=== PATIENT | female | born 1945 | race Caucasian/White ===

== ENCOUNTER 2023-10-06 21:28 | Emergency (ER) | payer MEDICARE, OTHER, SELFPAY ==
[2023-10-06 21:31] VITALS: BP 166/88
[2023-10-06 21:33] VITALS: BP 166/88
[2023-10-06 22:00] VITALS: BP 168/93
[2023-10-06 22:18] LABS: % Basophils 0.5 % (0-2); % Eosinophils 1.5 % (0-6); % Immature Granulocytes 0.4 % (0-0.5); % Lymphocytes 37.7 % (20.5-51.1); % Monocytes 8.7 % (1.7-9.3); % Neutrophils 51.2 % (42.2-75.2); Absolute Eosinophils 0.1 10^3/uL (0-0.7); Absolute Lymphocytes 2.8 10^3/uL (1.2-3.4); Absolute Monocytes 0.7 10^3/uL (0.1-0.6); Absolute Neutrophils 3.9 10^3/uL (1.4-6.5); Hematocrit 36.2 % (37.0-47.0); Hemoglobin 12.6 g/dL (12.0-16.0); Mean Corp Hgb Conc. 34.8 g/dL (33.0-37.0); Mean Corpuscular Hgb 31.9 pg (27.0-31.0); Mean Corpuscular Volume 91.6 fL (81.0-99.0); Nucleated Red Blood Cells % 0 %; Platelet Count 165 10^3/uL (130-400); Red Blood Cell Count 3.95 10^6/uL (4.20-5.40); Red Cell Dist. Width 16.2 % (11.5-14.5); White Blood Cell Count 7.5 10^3/uL (4.8-10.8)
--- NOTE | 2023-10-06 22:30 | ED.CVA ---
History of Present Illness
<BAKARI Patiño - Last Filed: 10/07/23 00:17>
General
Chief Complaint: CVA/TIA Symptoms
Source: patient
Exam Limitations: none
Time Seen by Provider: 10/06/23 22:16
Onset of Stroke Symptoms
Onset of symptoms known: No
Time pt last seen normal is known: No
Travel History
Have you had any contact with someone who has COVID-19?: No
Do you have any symptoms of coronavirus? Fever > 100 degrees, chills, cough, shortness of breath, sore throat, loss of taste or smell, muscle aches, or headache?: No
History of Present Illness
History of Present Illness:
This is a 78 year old female that comes in with multiple complaints. States that she has had a headache since after her Epidural on Sep 20. Sates that she also has Trigeminal neuralgia. States that she felt this fluttering in her ear and that she
felt that the Q-tip came out wet. States that this has not happened since. Then today she felt like her ear was wet again and her left leg buckled out from under her which has never happened before. States that she did not fall. States that she has
continued with this headache and she felt that her head in side was spinning. Denies any fever, chills, chest pain, SOB, abd pain, nausea, vomiting, diarrhea, urinary burning.
Past History
<BAKARI Patiño - Last Filed: 10/07/23 00:17>
Past History
ED Past Medical History: Cancer (Breast cancer 1997 ), CVA (TIA), Fibromyalgia, GERD, HTN, Hypercholesterolemia, Hypothyroidism, Psychiatric (Depression ) and Other (Cervical disc disease, neuropathy, headaches Spinal stenosis, Sleep apnea, Gout)
ED Past Surgical History: Gynecological (Hysterectomy ), Orthopedic (Cervical fusion X 2, carpal tunnel release , lumbar laminectomy and fusion), Tonsilectomy (and adnoids) and Other (Bilateral mastectomies 1981 with bilateral breast reconstruction
2003 and then removal of implants, cataracts, Abd adhesion removed)
Social History
Tobacco: Non-smoker
Alcohol: None
Drug: None
Personal:
Living: with family
Employment: Employed
Family History
Family History: Other
Review of Systems
<BAKARI Patiño - Last Filed: 10/07/23 00:17>
Review of Systems
All Other Systems: ROS reviewed and negative except as documented in HPI and ROS
Constitutional: Reports no symptoms; Denies fever or chills
EENT: Reports other (Feels like there is wet in the right ear)
Respiratory: Reports no symptoms; Denies cough or trouble breathing
Cardiac: Reports no symptoms; Denies chest pain
ABD/GI: Reports no symptoms; Denies abdominal pain, nausea, vomiting or diarrhea
: Reports no symptoms; Denies dysuria, frequency or urgency
Musculoskeletal: Reports no symptoms
Skin: Reports no symptoms
Neurological: Reports headache (Feels like her head is spinning inside); Denies dizzy
Psychiatric: Reports no symptoms
Phy Exam
<BAKARI Patiño - Last Filed: 10/07/23 00:17>
General Physical Exam
General Presentation: no apparent distress
General age: appears stated age
General Skin: warm and dry
General Habitus: elderly
General Mental: alert
General Hydration: dry mucous membranes
ENT Exam
ENT Exam: TM's normal (Negative for any fluid noted) and pharynx normal
Eye Exam
Eye Exam: EOMI
Cardiovascular Exam
Cardiovascular Exam: regular rate/rhythm, no edema and normal peripheral pulses
Pulmonary Exam
Pulmonary Exam: lungs clear, no respiratory distress, no rales, chest non tender, no crackles, no rhonchi, no wheezing and no cough
Gastrointestinal Exam
Gastrointestinal Exam: normal bowel sounds, non tender, soft, no organomegaly, no pulsatile mass and non distended
Musculoskeletal Exam
Musculoskeletal Exam: full ROM and no edema
Skin Exam
Skin Exam: normal color, warm/dry, no rash and no petechia
Psychiatric Exam
Psychiatric Exam: normal mood/affect
Course
<BAKARI Patiño - Last Filed: 10/07/23 00:17>
Orders/Labs/Results
Orders:
Orders
10/06/23 22:05
Complete Blood Count/With Diff Urgent
10/06/23 22:29
CT Head W/o Iv Contrast Urgent
Comment:
Reason For Exam: Headache, feels head spinning inside
0.9% Sodium Chloride 1000 ml [Nss] 1,000 ml IV BOLUS
Ketorolac [Toradol] 30 mg IV NOW STA
10/06/23 22:38
Comprehensive Metabolic Panel Urgent
Abnormal Lab Results
10/06/23 10/06/23
22:05 22:38
RBC 3.95 L 10^6/uL
(4.20-5.40)
Hct 36.2 L %
(37.0-47.0)
MCH 31.9 H pg
(27.0-31.0)
RDW 16.2 H %
(11.5-14.5)
MPV 12.0 H fL
(7.4-10.4)
Absolute Monos (auto) 0.7 H 10^3/uL
(0.1-0.6)
BUN 21 H mg/dl
(7-17)
Glucose 116 H mg/dl
(70-99)
10/06/23 22:05
10/06/23 22:38
Dehydration. Glucose nonfasting.
Vital Signs
Initial and Last Documented VS:
Initial Vital Signs
Temp Pulse Resp BP Pulse Ox
98.6 F 71 22 166/88 98
10/06/23 21:31 10/06/23 21:31 10/06/23 21:31 10/06/23 21:31 10/06/23 21:31
Last Documented Vital Signs
Temp Pulse Resp BP Pulse Ox
98.6 F 75 9 161/82 95
10/06/23 21:31 10/06/23 23:45 10/06/23 23:45 10/06/23 23:01 10/06/23 23:45
<Zachariah Bee, DO - Last Filed: 10/06/23 23:28>
Orders/Labs/Results
Orders:
Orders
10/06/23 22:05
Complete Blood Count/With Diff Urgent
10/06/23 22:29
CT Head W/o Iv Contrast Urgent
Comment:
Reason For Exam: Headache, feels head spinning inside
0.9% Sodium Chloride 1000 ml [Nss] 1,000 ml IV BOLUS
Ketorolac [Toradol] 30 mg IV NOW STA
10/06/23 22:38
Comprehensive Metabolic Panel Urgent
Abnormal Lab Results
10/06/23 10/06/23
22:05 22:38
RBC 3.95 L 10^6/uL
(4.20-5.40)
Hct 36.2 L %
(37.0-47.0)
MCH 31.9 H pg
(27.0-31.0)
RDW 16.2 H %
(11.5-14.5)
MPV 12.0 H fL
(7.4-10.4)
Absolute Monos (auto) 0.7 H 10^3/uL
(0.1-0.6)
BUN 21 H mg/dl
(7-17)
Glucose 116 H mg/dl
(70-99)
10/06/23 22:05
10/06/23 22:38
Vital Signs
Initial and Last Documented VS:
Initial Vital Signs
Temp Pulse Resp BP Pulse Ox
98.6 F 71 22 166/88 98
10/06/23 21:31 10/06/23 21:31 10/06/23 21:31 10/06/23 21:31 10/06/23 21:31
Last Documented Vital Signs
Temp Pulse Resp BP Pulse Ox
98.6 F 75 9 161/82 95
10/06/23 21:31 10/06/23 23:45 10/06/23 23:45 10/06/23 23:01 10/06/23 23:45
<BAKARI Patiño - Last Filed: 10/07/23 00:17>
MDM/Problems Addressed
Differential Diagnosis Includes:
Anxiety, Fibromyalgia, Chronic headaches
MDM/Problems Addressed:
This is a 78 year old female that comes in with with Multiple complaints. States that she has an epidural on Sep 20. Stae that after this she has had a headache and that she felt that the Q-tip came out wet. Then it stopped. Then today she felt
that there was fluttering in her ear and it felt wet. States that her left leg also buckled out from under her but she did not fall.
Will get labs, CT head, IV fluids and medicate for pain.
Back into see patient. Patient states that her headache is better. Explained that her CT of the head is normal and her blood work shows some dehydration. Patient to increase her water intake to 8-8oz glasses daily. Follow up with the family doctor
for recheck. Patient to return with any concerns
Chronic conditions affecting care:
fibromyalgia, Chronic headaches.
Chronic conditions affecting care: Psychiatric illness
Acute Exacerbation and/or Progression of Chronic Illness:
Fibromyalgia, Chronic headaches
Acute Exacerbation and/or Progression of Chronic Illness: Psychiatric illness
<BAKARI Patiño - Last Filed: 10/07/23 00:17>
*Radiology
Radiology exam reviewed: radiology read reviewed (CT head- No acute intracranial abnormality noted. )
*Pulse Oximetry
Patient hypoxic: no
*EKG
Interpreted by ED Provider?: NA
Rate: EKG- N/A
*Critical Care Note
Total Time (30-74mins, 75-104mins- exclusive of procedures): Not Applicable
ED Attending Note
<BAKARI Patiño - Last Filed: 10/07/23 00:17>
-
Portions of this chart may have been created with voice recognition software.� Occasional wrong word or��sound alike� substitutions may have occurred due to the inherent limitations of voice recognition software.
<Zachariah Bee DO - Last Filed: 10/06/23 23:28>
ED Attending Note
Patient seen and examined by attending physician: Yes
I performed the substantive portion of visit, reviewed & personally made and approve the management plan that is documented in note by myself or LUIS ENRIQUE.: Yes
ED Attending Note:
Seen with TRAFFIC ADMINISTRATOR examined independently. Assessment and plan nonfocal neurologic exam history of fibromyalgia multiple orthopedic procedures to the back, presents with fluttering in her ear,
On exam she is pleasant and oriented moves all extremities has chronic left lower extremity weakness,
Discharge Plan
Departure
Patient Disposition: Home (Routine Discharge)
Date of Disposition: 10/07/23
Time of Disposition: 00:13
Patient with high blood pressure during this ER visit?: Yes
Condition: Good
Covid-19: Not Applicable
Discharge Problem:
Headache
Instructions: Headache, Adult (DC), BLOOD PRESSURE
Prescriptions:
No Action
valacyclovir [Valtrex] 500 MG tablet
500 mg PO BID
montelukast 10 MG tablet
10 mg PO HS
acetaminophen 325 MG tablet
650 mg PO Q4HPRN PRN (Reason: mild pain/headache)
sennosides-docusate sodium 1 TABLET tablet
2 udtab PO HS
gabapentin 400 MG capsule
800 mg PO BID
atenolol 25 MG tablet
25 mg PO BID
topiramate 25 MG tablet
50 mg PO BID
meloxicam 7.5 MG tablet
15 mg PO DAILY
potassium chloride [Klor-Con M20] 20 MEQ tablet,ER particles/crystals
20 meq PO BID
levothyroxine 50 MCG tablet
50 mcg PO DAILY
pantoprazole 40 MG tablet,delayed release (DR/EC)
40 mg PO DAILY
diphenhydramine HCl [Banophen] 25 MG capsule
25 mg PO HS
oxybutynin chloride 5 MG tablet extended release 24hr
5 mg PO DAILY
fluticasone propionate 1 SPRAY spray,suspension
1 spray intranasal HS
escitalopram oxalate 20 MG tablet
20 mg PO HS
carboxymethylcellulose sodium [TheraTears] 1 EACH dropperette
2 drp BOTH EYES TID
aripiprazole 2 MG tablet
2 mg PO HS
cholecalciferol (vitamin D3) 1,000 UNITS tablet
1,000 units PO DAILY
Calcium Glycerophosphate
130 mg PO BID
atorvastatin 40 MG tablet
40 mg PO QPM 30 Days Qty: 30 0RF
aspirin 81 MG tablet,delayed release (DR/EC)
81 mg PO DAILY 0RF
famotidine 20 MG tablet
20 mg PO BID Qty: 20 0RF
Referrals:
Oneil Eisenberg MD [Family Provider] - Call in 1-3 days for appt
Activity Restrictions/Additional Instructions:
As discussed, your blood work shows that you are dehydrated. Please increase your water intake to 8-8oz glasses daily. Your CT of the head is normal. Please follow up with your family doctor and your Pain management doctor for further evaluation.
You may take Tylenol 1000mg every 6 hours for pain. If you are not taking the Meloxicam you may also use Ibuprofen 600mg every 6 hours with food for pain. IF YOU HAVE ANY OTHER CONCERNS PLEASE RETURN TO THE EMERGENCY ROOM.
Interventions
Interventions:
*Risk Screen - Suicide Last Done: 10/06/23 21:34
*General Assessment Last Done: 10/06/23 21:34
*Neglect/Abuse Screening Last Done: 10/06/23 21:34
*ED COVID-19 Vaccine History Last Done: 10/06/23 21:34
ED- Pulmonary Assessment Last Done: 10/06/23 22:06
ED- Neurological Assessment Last Done: 10/06/23 22:06
ED- Cardiac Assessment Last Done: 10/06/23 22:06
[2023-10-06] MEDS: TORADOL 30 MG IV (22:34)
[2023-10-06] MEDS: NSS 1000 IV (22:36)
[2023-10-06 22:59] LABS: ALT (SGPT) 26 U/L (0-35); AST (SGOT) 30 U/L (14-36); Albumin 4.2 g/dl (3.5-5.0); Alkaline Phosphatase 120 U/L (38-126); Blood Urea Nitrogen 21 mg/dl (7-17); Calcium 9.3 mg/dl (8.4-10.2); Carbon Dioxide 22 mmol/L (22-30); Chloride 107 mmol/L (98-107); Glucose 116 mg/dl (70-99); Potassium 3.8 mmol/L (3.5-5.1); Sodium 136 mmol/L (135-145); Total Bilirubin 0.4 mg/dl (0.2-1.3); Total Protein 6.9 g/dl (6.3-8.2); eGFR 57.66
[2023-10-06 23:01] VITALS: BP 161/82
[2023-10-07] VITALS: BP 130/62
== END 2023-10-07 00:40 | disposition home or self-care (01) ==
LOC: EMR 21:28
PROVIDERS: EMERGENCY PHYSICIAN Emergency Medicine; FAMILY PHYSICIAN Family Medicine
DX: R51.9 Headache, unspecified (principal); R42 Dizziness and giddiness; M79.7 Fibromyalgia; G50.0 Trigeminal neuralgia; E86.0 Dehydration; I10 Essential (primary) hypertension
CPT/HCPCS: 99284; 96374; 96361; 70450; 80053; 85025

== ENCOUNTER 2024-06-04 17:07 | Emergency (ER) | payer MEDICARE, OTHER, SELFPAY ==
[2024-06-04 17:28] VITALS: BP 122/85
[2024-06-04 17:47] LABS: % Basophils 0.4 % (0-2); % Eosinophils 1.2 % (0-6); % Immature Granulocytes 0.4 % (0-0.5); % Monocytes 8.6 % (1.7-9.3); % Neutrophils 55.4 % (42.2-75.2); Absolute Eosinophils 0.1 10^3/uL (0-0.7); Absolute Lymphocytes 2.5 10^3/uL (1.2-3.4); Absolute Monocytes 0.6 10^3/uL (0.1-0.6); Absolute Neutrophils 4.1 10^3/uL (1.4-6.5); Hematocrit 37.3 % (37.0-47.0); Hemoglobin 12.7 g/dL (12.0-16.0); Mean Corpuscular Hgb 31.1 pg (27.0-31.0); Mean Corpuscular Volume 91.2 fL (81.0-99.0); Mean Platelet Volume 12.3 fL (7.4-10.4); Nucleated Red Blood Cells % 0 %; Platelet Count 180 10^3/uL (130-400); Red Blood Cell Count 4.09 10^6/uL (4.20-5.40); Red Cell Dist. Width 16.2 % (11.5-14.5); White Blood Cell Count 7.3 10^3/uL (4.8-10.8)
[2024-06-04 18:24] LABS: ALT (SGPT) 27 U/L (0-35); AST (SGOT) 35 U/L (14-36); Albumin 4.7 g/dl (3.5-5.0); Alkaline Phosphatase 88 U/L (38-126); Blood Urea Nitrogen 19 mg/dl (7-17); Carbon Dioxide 25 mmol/L (22-30); Chloride 104 mmol/L (98-107); Glucose 117 mg/dl (70-99); Lipase 161 U/L (23-300); Potassium 4.1 mmol/L (3.5-5.1); Sodium 141 mmol/L (135-145); Total Bilirubin 0.3 mg/dl (0.2-1.3); Total Protein 7.4 g/dl (6.3-8.2); eGFR 57.66
[2024-06-04 18:41] VITALS: BP 90/63
[2024-06-04 19:00] LABS: Urine Albumin Negative (Neg - Trace); Urine Bilirubin Negative (Negative); Urine Character Clear (Clear); Urine Color Straw; Urine Glucose Negative (Negative); Urine Ketone Negative (Negative); Urine Leukocyte Trace (Negative); Urine Nitrite Negative (Negative); Urine Occult Blood Negative (Negative); Urine Specific Gravity 1.015 (<1.030); Urine Urobilinogen Negative (Neg - 1+)
--- NOTE | 2024-06-04 19:18 | ED.GENMED ---
History of Present Illness
General
Chief Complaint: Abdominal Pain
Source: patient
Exam Limitations: none
Time Seen by Provider: 06/04/24 18:47
History of Present Illness
History of Present Illness:
This is a 78 year old female that comes in with c/o abd pain. States that she is very nauseated and that she has pain in the right abd that goes around to the back and goes up and down. States that this started yesterday. States that today she went
to see the PCP and was told to come to the ER. States that the pain is constant and that she did take Tylenol 500mg at 3pm. States that she usually has a headache. Denies any fever, chills, chest pain, SOB, vomiting, diarrhea, dizziness, urinary
burning.
Past History
Past History
ED Past Medical History: Cancer (Breast cancer 1997 ), CVA (TIA), Fibromyalgia, GERD, HTN, Hypercholesterolemia, Hypothyroidism, Psychiatric (Depression ) and Other (Cervical disc disease, neuropathy, headaches Spinal stenosis, Sleep apnea, Gout,
Right arm lymph edema, Rebel Linus Syndrome)
ED Past Surgical History: Gynecological (Hysterectomy ), Orthopedic (Cervical fusion X 2, carpal tunnel release , lumbar laminectomy and fusion, Bilateral carpal tunnel), Tonsilectomy (and adenoids) and Other (Bilateral mastectomies 1980 with
bilateral breast reconstruction 2003 and then removal of implants, cataracts, Abd adhesion removed)
Social History
Tobacco: Non-smoker
Alcohol: None
Drug: None
Personal:
Living: with family
Employment: Employed
Family History
Family History: Other
Review of Systems
Review of Systems
All Other Systems: ROS reviewed and negative except as documented in HPI and ROS
Constitutional: Reports no symptoms; Denies fever or chills
EENT: Reports no symptoms
Respiratory: Reports no symptoms; Denies cough or trouble breathing
Cardiac: Reports no symptoms; Denies chest pain
ABD/GI: Reports abdominal pain and nausea; Denies vomiting or diarrhea
: Reports no symptoms; Denies dysuria, frequency or urgency
Musculoskeletal: Reports no symptoms
Skin: Reports no symptoms
Neurological: Reports headache (always); Denies dizzy
Psychiatric: Reports no symptoms
Phy Exam
General Physical Exam
General Presentation: no apparent distress
General age: appears stated age
General Skin: warm and dry
General Habitus: elderly
General Mental: alert
General Hydration: dry mucous membranes
ENT Exam
ENT Exam: TM's normal, pharynx normal and neck supple
Eye Exam
Eye Exam: EOMI
Cardiovascular Exam
Cardiovascular Exam: regular rate/rhythm, no edema and normal peripheral pulses
Pulmonary Exam
Pulmonary Exam: lungs clear, no respiratory distress, no rales, chest non tender, no crackles, no rhonchi, no wheezing and no cough
Gastrointestinal Exam
Gastrointestinal Exam: normal bowel sounds, soft, no organomegaly, no pulsatile mass, non distended and tender (Generalized tenderness with palpation)
Musculoskeletal Exam
Musculoskeletal Exam: full ROM and no edema
Skin Exam
Skin Exam: normal color, warm/dry, no rash and no petechia
Psychiatric Exam
Psychiatric Exam: normal mood/affect
Course
Orders/Labs/Results
Orders:
Orders
06/04/24 17:36
Complete Blood Count/With Diff Urgent
Comprehensive Metabolic Panel Urgent
Lipase Urgent
06/04/24 18:45
Urinalysis Reflex To Culture Urgent
Date Specimen was Collected: 06/04/24
Time Specimen was Collected: 18:40
Urine Microscopic Reflex Cult Urgent
06/04/24 19:17
0.9% Sodium Chloride 1000 ml [Nss] 1,000 ml IV BOLUS
06/04/24 19:18
CT Abd/pelvis W Iv Cont Urgent
Comment:
Reason For Exam: Generalized abd pain
Ondansetron Injectable [Zofran] 4 mg IV NOW STA
06/04/24 19:19
Electrocardiogram (*1) Urgent
Reason for Study: QTc Monitoring
EKG- Treatment ONCE
Abnormal Lab Results
06/04/24 06/04/24
17:36 18:45
RBC 4.09 L 10^6/uL
(4.20-5.40)
MCH 31.1 H pg
(27.0-31.0)
RDW 16.2 H %
(11.5-14.5)
MPV 12.3 H fL
(7.4-10.4)
BUN 19 H mg/dl
(7-17)
Glucose 117 H mg/dl
(70-99)
Leukocyte Esterase Rfl Trace A
(Negative)
06/04/24 17:36
06/04/24 17:36
Very slight Dehydration. Hyperglycemia. Lipase normal at 161, Urine negative for infection
Vital Signs
Initial and Last Documented VS:
Initial Vital Signs
Temp Pulse Resp BP Pulse Ox
98 F 75 18 122/85 98
06/04/24 17:28 06/04/24 17:28 06/04/24 17:28 06/04/24 17:28 06/04/24 17:28
Last Documented Vital Signs
Temp Pulse Resp BP Pulse Ox
98 F 74 18 90/63 97
06/04/24 17:28 06/04/24 18:41 06/04/24 18:41 06/04/24 18:41 06/04/24 18:41
MDM/Problems Addressed
Differential Diagnosis Includes:
Colitis, Enteritis, Renal calculus, Appendicitis
MDM/Problems Addressed:
This is a 78 year old female that comes in with c/o right sided abd pain that goes around to the back and goes up and down the back on the right side. States that she is nauseated and that this pain started yesterday.
Will check labs, Urine and get CT scan. Will also give IV fluids.
Back into see patient. Explained that her blood work shows very slight Dehydration otherwise normal. Her CT is negative for any acute disease. Will give patient a prescription for Zofran and have her Follow up with the family doctor. Patient states
that it might just be her Fibromyalgia. Patient to return with any concerns.
Chronic conditions affecting care:
NA
Acute Exacerbation and/or Progression of Chronic Illness:
NA
*Radiology
Radiology exam reviewed: radiology read reviewed (CT- No significant abnormality identified in the abdomen or pelvis, as described above. )
*Pulse Oximetry
Patient hypoxic: no
*EKG
Interpreted by ED Provider?: Yes
Heart Rate: 73
Rate: normal
Rhythm: sinus
[place]: left axis deviation
Interval: normal interval
QRS Pattern: normal QRS
Ischemia: no ischemia
*Efficiency Clerk Interpretation
Rate: Efficiency Clerk- N/A
*Critical Care Note
Total Time (30-74mins, 75-104mins- exclusive of procedures): Not Applicable
ED Attending Note
-
Portions of this chart may have been created with voice recognition software.� Occasional wrong word or��sound alike� substitutions may have occurred due to the inherent limitations of voice recognition software.
Discharge Plan
Departure
Patient Disposition: Home (Routine Discharge)
Date of Disposition: 06/04/24
Time of Disposition: 21:09
Patient with high blood pressure during this ER visit?: No
Condition: Good
Covid-19: Not Applicable
Discharge Problem:
Nausea, Abdominal pain
Instructions: Nausea and Vomiting, Adult (DC), Abdominal Pain
Prescriptions:
New
ondansetron HCl 4 mg tablet
4 mg PO Q8H PRN (Reason: nausea and vomiting) Qty: 7 0RF
No Action
valacyclovir [Valtrex] 500 MG tablet
500 mg PO BID
montelukast 10 MG tablet
10 mg PO HS
acetaminophen 325 MG tablet
650 mg PO Q4HPRN PRN (Reason: mild pain/headache)
sennosides-docusate sodium 1 TABLET tablet
2 udtab PO HS
gabapentin 400 MG capsule
800 mg PO BID
atenolol 25 MG tablet
25 mg PO BID
topiramate 25 MG tablet
50 mg PO BID
meloxicam 7.5 MG tablet
15 mg PO DAILY
potassium chloride [Klor-Con M20] 20 MEQ tablet,ER particles/crystals
20 meq PO BID
levothyroxine 50 MCG tablet
50 mcg PO DAILY
pantoprazole 40 MG tablet,delayed release (DR/EC)
40 mg PO DAILY
diphenhydramine HCl [Banophen] 25 MG capsule
25 mg PO HS
oxybutynin chloride 5 MG tablet extended release 24hr
5 mg PO DAILY
fluticasone propionate 1 SPRAY spray,suspension
1 spray intranasal HS
escitalopram oxalate 20 MG tablet
20 mg PO HS
carboxymethylcellulose sodium [TheraTears] 1 EACH dropperette
2 drp BOTH EYES TID
aripiprazole 2 MG tablet
2 mg PO HS
cholecalciferol (vitamin D3) 1,000 UNITS tablet
1,000 units PO DAILY
Calcium Glycerophosphate
130 mg PO BID
atorvastatin 40 MG tablet
40 mg PO QPM 30 Days Qty: 30 0RF
aspirin 81 MG tablet,delayed release (DR/EC)
81 mg PO DAILY 0RF
famotidine 20 MG tablet
20 mg PO BID Qty: 20 0RF
Referrals:
Oneil Eisenberg MD [Family Provider] - Follow up in 2-3 days
Activity Restrictions/Additional Instructions:
As discussed, your blood work shows very slight Dehydration. Please increase your water intake to 8-8oz glasses daily. Your CT is normal. Please follow up with the family doctor for recheck. A prescription for Zofran has been sent to your pharmacy
to help with any nausea/vomiting. IF YOU HAVE ANY OTHER CONCERNS PLEASE RETURN TO THE EMERGENCY ROOM.
Interventions
Interventions:
*Risk Screen - Suicide Last Done: 06/04/24 18:42
*General Assessment Last Done: 06/04/24 18:42
*Neglect/Abuse Screening Last Done: 06/04/24 18:42
ED- Fall Risk Assessment Last Done: 06/04/24 19:12
*ED COVID-19 Vaccine History Last Done: 06/04/24 18:42
SP-[id number] Assessment Last Done: 06/04/24 19:12
Discharge Date and Time
Print Language: MALTESE
[2024-06-04] MEDS: ZOFRAN 4 MG IV (19:23)
[2024-06-04] MEDS: NSS 1000 IV (19:24)
[2024-06-04 19:29] LABS: Urine Squamous Cell 0-2 /LPF (Few)
[2024-06-04 19:30] LABS: Urine Red Blood Cell 0-2 /HPF (0-2); Urine White Cell 0-2 /HPF (0-5)
[2024-06-04 21:32] VITALS: BP 110/70
== END 2024-06-04 21:34 | disposition home or self-care (01) ==
LOC: EMR 17:07
PROVIDERS: Emergency Medicine; Student in an Organized Health Care Education/Training Program; EMERGENCY PHYSICIAN Student in an Organized Health Care Education/Training Program; FAMILY PHYSICIAN Family Medicine
DX: R11.0 Nausea (principal); R10.9 Unspecified abdominal pain; R51.9 Headache, unspecified; E86.0 Dehydration; E03.9 Hypothyroidism, unspecified; E78.00 Pure hypercholesterolemia, unspecified; F32.A Depression, unspecified; G47.30 Sleep apnea, unspecified; I10 Essential (primary) hypertension; K21.9 Gastro-esophageal reflux disease without esophagitis; M79.7 Fibromyalgia; M48.00 Spinal stenosis, site unspecified; M10.9 Gout, unspecified; L51.1 Stevens-Johnson syndrome; Z79.82 Long term (current) use of aspirin; Z85.3 Personal history of malignant neoplasm of breast; Z86.73 Personal history of transient ischemic attack (TIA), and cerebral infarction without residual deficits; M43.22 Fusion of spine, cervical region; Z98.1 Arthrodesis status; Z90.13 Acquired absence of bilateral breasts and nipples; Z88.1 Allergy status to other antibiotic agents; Z88.0 Allergy status to penicillin; Z88.2 Allergy status to sulfonamides; Z88.8 Allergy status to other drugs, medicaments and biological substances
CPT/HCPCS: 99284; 96361 ×2; 96374; 74177; 80053; 81003; 81015; 83690; 85025; 93005; Q9967

== ENCOUNTER → 2025-04-29 14:27 | Outpatient (REF) | payer MEDICARE, OTHER, SELFPAY | LOC: HWRAD 14:27 | PROVIDERS: ATTENDING PHYSICIAN Internal Medicine Rheumatology; FAMILY PHYSICIAN Family Medicine; REFERRING PHYSICIAN Podiatrist Foot & Ankle Surgery | DX: M10.9 Gout, unspecified (principal); M15.9 Polyosteoarthritis, unspecified; M19.071 Primary osteoarthritis, right ankle and foot; M47.812 Spondylosis without myelopathy or radiculopathy, cervical region; M48.061 Spinal stenosis, lumbar region without neurogenic claudication; M79.7 Fibromyalgia | CPT/HCPCS: 73560; 73565 ==